=== PATIENT | female | born 1970 | race Caucasian/White ===

== ENCOUNTER 2022-05-13 18:39 | Observation (INO) | payer BC ==
[2022-05-13] MEDS ORDERED: Mag-Al Plus 1200 MG/1200 MG/120 MG/30 ML UDCUP ONE (19:22)
[2022-05-13] MEDS ORDERED: Aspirin Chewable 81 MG TAB ONE (19:22)
[2022-05-13] MEDS ORDERED: Lidocaine Viscous Sol 2% 15 ml UD Cup ONE (19:22)
[2022-05-13] MEDS ORDERED: Morphine 4 MG/ML VIAL ONE (19:22)
[2022-05-13] MEDS ORDERED: Ondansetron PF 4 MG/2 ML Vial ONE (19:22)
[2022-05-13 19:28] LABS: #Basophils 0.1 thou/uL (0.0-0.2); #Monocytes 0.5 thou/uL (0.11-0.59); %Basophils 0.4 % (0.0-1.0); %Eosinophils 0.3 % (0.0-10.0); %Neutrophils 83.3 % (42.0-75.0); Hemoglobin 13.9 g/dL (12.0-16.0); Mean Corpuscular Volume 82.3 fL (78.0-98.0); Mean Platelet Volume 7.4 fL (7.4-10.4); Platelet Count 403 thou/uL (130-400); Red Blood Cell (RBC) Count 4.97 mill/uL (4.20-5.40); White Blood Cell (WBC) Count 15.6 thou/uL (4.8-10.8)
[2022-05-13 19:43] LABS: ALT (SGPT) 25 U/L (8-55); AST (SGOT) 13 U/L (5-34); Albumin 4.1 g/dL (3.5-5.0); Alkaline Phosphatase 101 U/L (40-110); Anion Gap 14 mmol/L (10-20); BUN (Urea Nitrogen) 12 mg/dL (7.0-18.7); Bilirubin, Total 0.6 mg/dL (0.2-1.2); Calc. Creatinine Clearance 0 mL/min (70-130); Calcium 9.3 mg/dL (7.8-10.44); Carbon Dioxide 25 mmol/L (22-29); Chloride 101 mmol/L (98-107); Estimated GFR 73; Globulin 3.1 g/dL (2.4-3.5); Glucose 253 mg/dL (70-105); Lipase 92 U/L (8-78); Protein, Total 7.2 g/dL (6.0-8.3); Sodium 136 mmol/L (136-145)
[2022-05-13] MEDS ORDERED: Ketorolac Tromethamine 30 MG/ML VIAL ONE (20:02)
[2022-05-13 21:15] VITALS: BMI 44.8
[2022-05-13] MEDS ORDERED: Ketorolac Tromethamine 30 MG/ML VIAL IVP PRN (21:33)
[2022-05-13] MEDS ORDERED: Morphine 4 MG/ML VIAL SLOW IVP PRN (21:33)
[2022-05-13] MEDS ORDERED: Ondansetron PF 4 MG/2 ML Vial IVP PRN (21:45)
[2022-05-13] MEDS ORDERED: Ondansetron ODT 4 MG TAB SL PRN (21:45)
[2022-05-13] MEDS: Sodium Chloride 0.9% 1,000 ML IV SCH (22:00)
[2022-05-13 23:52] LABS: SARS-CoV-2 NAA Rapid Test Not Detected (NotDetected)
[2022-05-14] MEDS ORDERED: Ketorolac Tromethamine 30 MG/ML VIAL ONE (01:45)
[2022-05-14] MEDS: Sodium Chloride 0.9% 1,000 ML IV SCH ×4 (05:45→22:58)
[2022-05-14] MEDS ORDERED: Morphine 4 MG/ML VIAL ONE ×3 (07:51→23:04)
[2022-05-14] MEDS ORDERED: Ondansetron PF 4 MG/2 ML Vial IVP PRN (09:21)
[2022-05-14 09:47] LABS: #Eosinphils 0.1 thou/uL (0.0-0.7); #Monocytes 0.4 thou/uL (0.11-0.59); #Neutrophils 6.5 thou/uL (1.40-6.50); %Basophils 0.4 % (0.0-1.0); %Eosinophils 0.7 % (0.0-10.0); %Lymphocytes 22.4 % (21.0-51.0); %Monocytes 4.2 % (0.0-10.0); %Neutrophils 72.3 % (42.0-75.0); Mean Corpuscular HGB CONC 32.4 g/dL (32.0-36.0); Mean Corpuscular Hemoglobin 27.6 pg (27.0-31.0); Mean Corpuscular Volume 85.2 fL (78.0-98.0); Mean Platelet Volume 7.8 fL (7.4-10.4); Platelet Count 319 thou/uL (130-400); RBC Distribution Width 12.5 % (11.5-14.5); RBC Morphology PT ON IV'S ALL NIGHT; Red Blood Cell (RBC) Count 4.34 mill/uL (4.20-5.40)
[2022-05-14 09:49] LABS: ALT (SGPT) 16 U/L (8-55); AST (SGOT) 12 U/L (5-34); Albumin 3.4 g/dL (3.5-5.0); Alkaline Phosphatase 86 U/L (40-110); Anion Gap 13 mmol/L (10-20); BUN (Urea Nitrogen) 8 mg/dL (7.0-18.7); Bilirubin, Total 0.6 mg/dL (0.2-1.2); Calc. Creatinine Clearance 153 mL/min (70-130); Calcium 8.4 mg/dL (7.8-10.44); Carbon Dioxide 24 mmol/L (22-29); Chloride 109 mmol/L (98-107); Estimated GFR 94; Globulin 2.1 g/dL (2.4-3.5); Glucose 174 mg/dL (70-105); Lipase 63 U/L (8-78); Potassium 4.2 mmol/L (3.5-5.1); Protein, Total 5.5 g/dL (6.0-8.3); Sodium 142 mmol/L (136-145)
[2022-05-14 09:53] LABS: Cardiac Risk 2.9 (Less than 4.5)
[2022-05-14] MEDS: Acetaminophen 325 MG TAB PO PRN ×2 (09:53→20:17)
[2022-05-14] MEDS: Morphine 4 MG/ML VIAL SLOW IVP PRN ×2 (13:50→23:14)
[2022-05-14] MEDS ORDERED: HYDROcodone/Acetaminophen 5/325 mg Tablet PO PRN (14:46)
[2022-05-14 15:00] LABS: Hemoglobin A1c 7.5 % (4.0-6.0)
[2022-05-15] MEDS: Acetaminophen 325 MG TAB PO PRN (03:19)
[2022-05-15] MEDS: Sodium Chloride 0.9% 1,000 ML IV SCH (05:11)
[2022-05-15 07:34] VITALS: BP 152/85; TEMP 98.8
[2022-05-15] MEDS ORDERED: Iopamidol 370 76% 100 ML VIAL FS ONE (10:05)
== END 2022-05-15 10:06 | disposition home or self-care (01) ==
LOC: BURERS 18:39 → BURMED 21:05
PROVIDERS: ADMIT Family Medicine; ATTEND Family Medicine
DX: K85.90 Acute pancreatitis without necrosis or infection, unspecified (principal); E11.65 Type 2 diabetes mellitus with hyperglycemia; D72.829 Elevated white blood cell count, unspecified; F17.210 Nicotine dependence, cigarettes, uncomplicated; Z88.0 Allergy status to penicillin; Z20.822 Contact with and (suspected) exposure to COVID-19
CPT/HCPCS: 36415; 71045; 74177; 80053; 80061; 83036; 83690; 83880; 84484; 85025; 85379; 93005; 96361; 96374; 96375; 96376; G0378; J1885; J2270; J2405; J7050; Q9967; U0002